=== PATIENT | male | born 1970 | race Caucasian/White ===

== ENCOUNTER 2018-01-13 18:54 | Outpatient (CLI) | payer BC | END 2018-01-13 18:55 | disposition short-term general hospital (02) | LOC: EMS 18:54 | PROVIDERS: ATTEND Surgery | DX: R07.0 Pain in throat (principal); M25.532 Pain in left wrist; M25.531 Pain in right wrist; Y04.8XXA Assault by other bodily force, initial encounter | CPT/HCPCS: A0425; A0429 ==

== ENCOUNTER 2018-05-17 10:55 | Emergency (ER) | payer BC ==
--- NOTE | 2018-05-17 11:36 | XRAY Report ---
Reason: great toe pain. swelling Procedure Date: 05/17/2018 Accession Number: [id number] / [id number] Procedure: XR - Foot 3 View RT CPT Code: FULL RESULT: EXAM: RIGHT FOOT RADIOGRAPHY EXAM DATE: 05/17/2018 11:30 AM. CLINICAL HISTORY: Great toe pain. swelling. COMPARISON: None. TECHNIQUE: 3 views. FINDINGS: Bones: Impacted nondisplaced transverse fracture of first distal phalangeal base. Otherwise unremarkable. Joints: Normal. No subluxations. Soft Tissues: Mild soft tissue swelling. IMPRESSION: Nondisplaced first distal phalangeal fracture. RADIA
--- NOTE | 2018-05-17 12:38 | ED Physician Documentation ---
PD HPI LOWER EXT INJURY - Stated complaint Stated Complaint: R BIG TOE INJ - Chief complaint Chief Complaint: Ext Problem - History obtained from History obtained from: Patient - History of Present Illness PD HPI LOW EXT INJURY LOCATION: Right, Toe (great toe) Type of injury: Blunt / blow (kicked a floor gerardo) Where injury occurred: Home Timing - onset: Yesterday Timing - duration: Days (1) Timing - details: Abrupt onset Pain level max: 7 Pain level now: 7 Improved by: Rest, Ice, Immobilization Worsened by: Moving, Palpating Associated symptoms: Swelling. No: Weakness, Numbness, Tingling Similar symptoms before: Has not had sx before - Additional information Additional information: Patient is a 47-year-old male who accidentally kicked a floor gerardo last night causing pain in the right great toe. Difficulty walking today. Has not taken anything for the pain at home Review of Systems Constitutional: denies: Fever Musculoskeletal: denies: Neck pain, Back pain Neurologic: denies: Focal weakness, Numbness PD PAST MEDICAL HISTORY - Past Medical History Past Medical History: Yes Cardiovascular: Hypertension Respiratory: None Neuro: None Endocrine/Autoimmune: None GI: None : None HEENT: None Psych: None Musculoskeletal: Other Derm: None Other Past Medical History: chronic nerve pain in right hand - Past Surgical History Past Surgical History: Yes Ortho: Carpal Tunnel surgery, Other - Present Medications Home Medications: Ambulatory Orders Medication Instructions Recorded Confirmed Meloxicam [Mobic] 15 mg PO DAILY PRN #20 tablet 05/17/18 - Allergies Allergies/Adverse Reactions: Allergies Allergy/AdvReac Type Severity Reaction Status Date / Time ranitidine Allergy Itching Verified 05/17/18 11:21 - Social History Does the pt smoke?: Yes Smoking Status: Current every day smoker Does the pt drink ETOH?: Yes Does the pt have substance abuse?: No - Immunizations Immunizations are current?: Yes - POLST Patient has POLST: No PD ED PE NORMAL - Vitals Vital signs reviewed: Yes - General General: Alert and oriented X 3, No acute distress - HEENT HEENT: Moist mucous membranes - Derm Derm: Warm and dry - Extremities Extremities: Other (Right foot - Tender to palpation over the distal aspect of the right great toe. Neurovascularly intact. Mild swelling. No deformity otherwise normal examination of the foot) - Neuro Neuro: Alert and oriented X 3 - Psych Psych: Normal mood, Normal affect Results - Vitals Vitals: Vital Signs - 24 hr 05/17/18 11:19 Temperature 36.3 C L Heart Rate 62 Respiratory 16 Rate Blood Pressure 131/72 H O2 Saturation 100 Oxygen O2 Source Room air - Rads (name of study) Right foot x-ray Radiology: Prelim report reviewed, EMP read contemporaneously, See rad report (Nondisplaced first distal phalangeal fracture. ) PD MEDICAL DECISION MAKING - ED course Complexity details: reviewed results, re-evaluated patient, considered differential, d/w patient ED course: Patient is a 47-year-old male with a nondisplaced first distal phalangeal fracture of the right foot. Placed in the postoperative shoe and given cr utches. Will make weightbearing as tolerated. Will prescribe meloxicam for home. Neurovascularly intact. Patient counseled regarding signs and symptoms for which I believe and urgent re-evaluation would be necessary. Patient with good understanding of and agreement to plan and is comfortable going home at this time This document was made in part using voice recognition software. While efforts are made to proofread this document, sound alike and grammatical errors may occur. - Sepsis Event Vital Signs: Vital Signs - 24 hr 05/17/18 11:19 Temperature 36.3 C L Heart Rate 62 Respiratory 16 Rate Blood Pressure 131/72 H O2 Saturation 100 Oxygen O2 Source Room air Departure - Departure Disposition: 01 Home, Self Care Clinical Impression: Toe fracture, right Qualifiers: Encounter type: initial encounter Toe: great toe Fracture type: closed Phalanx: distal Fracture alignment: nondisplaced Qualified Code(s): S92.424A - Nondisplaced fracture of distal phalanx of right great toe, initial encounter for closed fracture Condition: Good Instructions: ED Fx Toe Closed Follow-Up: your,doctor in 1 week [Other] Prescriptions: Meloxicam [Mobic] 15 mg PO DAILY PRN #20 tablet PRN Reason: pain Comments: You have a nondisplaced fracture of the distal portion of your great toe. This should heal without any problems, but you should follow-up with your doctor to ensure proper healing. You may bear weight as tolerated. Return if you worsen. Forms: Activity restrictions
[2018-05-17] MEDS ORDERED: MELOXICAM 7.5 MG TABLET PO STA (12:43)
[2018-05-17 13:07] VITALS: BP 140/80
== END 2018-05-17 13:13 | disposition home or self-care (01) ==
LOC: ED 10:55
DX: S92.424A Nondisplaced fracture of distal phalanx of right great toe, initial encounter for closed fracture (principal); I10 Essential (primary) hypertension; F17.200 Nicotine dependence, unspecified, uncomplicated; W22.8XXA Striking against or struck by other objects, initial encounter; Y92.009 Unspecified place in unspecified non-institutional (private) residence as the place of occurrence of the external cause
CPT/HCPCS: 73630; 99283; A9270